=== PATIENT | female | born 1950 | race Caucasian/White ===

== ENCOUNTER 2016-08-28 05:14 | Day surgery (SDC) | payer BC ==
[~2016-08-28 05:14] MED LIST: ACET500CAP PO; AMB10 PO; CELEBREX2 PO; NASONEX NAS; TAMOXIFEN20 M1 PO
== END 2016-08-28 09:46 | disposition home or self-care (01) ==
LOC: SDC 05:14
PROVIDERS: Orthopaedic Surgery Orthopaedic Surgery of the Spine
PROC: 3E0R33Z Introduction of Anti-inflammatory into Spinal Canal, Percutaneous Approach (ICD-10-PCS; principal; 2016-08-28 08:30)
DX: M54.5 Low back pain (principal); M48.06 Spinal stenosis, lumbar region; G47.30 Sleep apnea, unspecified; Z88.5 Allergy status to narcotic agent; Z88.8 Allergy status to other drugs, medicaments and biological substances; M19.90 Unspecified osteoarthritis, unspecified site; Z90.49 Acquired absence of other specified parts of digestive tract; Z86.010 Personal history of colon polyps; Z87.442 Personal history of urinary calculi; Z98.890 Other specified postprocedural states; Z99.81 Dependence on supplemental oxygen
CPT/HCPCS: J2250; J3010; Q9967